=== PATIENT | male | born 1960 | race Two or more races ===

== ENCOUNTER 2024-07-04 08:59 | Emergency (ER) | payer MEDICAID, SELFPAY ==
[2024-07-04] VITALS (8 sets, daily range): BP systolic 150–205; BP diastolic 81–101; PULSE 78–86; RESP 16–20; TEMP 36.4–36.6; O2SAT 96–100; BMI 28.3
--- NOTE | 2024-07-04 09:37 | PC.NURSE ---
PATIENT BROUGHT IN BY EMS SECONDARY TO WITNESSED SEIZURE ACTIVITY. PATIENT ON GURNEY, IV ESTABLISHED. SEIZURE PRECAUTIONS IN PLACE.
--- NOTE | 2024-07-04 10:03 | XR_ITS ---
Examination: CT brain head without contrast. 2-D sagittal coronal reconstructions Date and time of exam:July 04, 2024 1037 hrs. Indications: Seizure this morning CTDI: vol (mGy):53.2 DLP: (mGycm):1130 Technique: Multiple CT axial sections of the brain have been obtained, 5 mm slice thickness. Contrast has not been administered. 2-D sagittal, coronal reconstructions have been obtained Low dose protocols were performed. One or more of the following dose reduction techniques were used; automated exposure control, adjustment of the mA and/or KV according to patient size, use of iterative reconstruction technique. Findings: Acute left basal ganglia hemorrhage, 5 x 4.7 x 2.8 cm with surrounding edema Significant mass effect upon the left lateral ventricle, shift of the frontal horns to the right at least 5 mm No intraventricular hemorrhage No extra-axial hemorrhage Cranial vault appears intact Impression: 5.0 x 4.7 x 2.8 cm left basal ganglia hemorrhage with surrounding edema Significant mass effect upon the left lateral ventricle, shift of the frontal horns to the right at least 5 mm
[2024-07-04 10:22] LABS: Basophils # (Auto) 0.1 Thou/mm3 (0.0-0.2); Basophils % (Auto) 1 % (0-2.5); Eosinophils # (Auto) 0.3 Thou/mm3 (0.0-0.5); Eosinophils % (Auto) 3 % (0-10); Hematocrit 31.7 % (41.0-53.0); Hemoglobin 10.7 g/dL (13.5-16.0); Immature Granulocytes % (Auto) 1 % (0-0); Immature Granulocytes Auto 0.11 Thou/mm3 (0.00-0.00); Lymphocytes # (Auto) 1.8 Thou/mm3 (1.0-4.8); Lymphocytes % (Auto) 18 % (10-50); Mean Corpuscular HGB Conc 33.8 g/dl (31.0-37.0); Mean Corpuscular Hemoglobin 30.2 pg (25.0-35.0); Mean Corpuscular Volume 90 fL (80-100); Monocytes # (Auto) 0.7 Thou/mm3 (0.0-0.8); Monocytes % (Auto) 7 % (0-12); Neutrophils # (Auto) 7.1 Thou/mm3 (1.8-7.7); Neutrophils % (Auto) 70 % (37-80); Nucleated Red Blood Cell % 0 /100 WBC (0); Platelet Count 187 Thou/mm3 (140-440); RDW Standard Deviation 46.3 fL (35.1-43.9); Red Blood Count 3.54 Miln/mm3 (4.50-5.90); White Blood Count 10.1 Thou/mm3 (3.8-10.6)
--- NOTE | 2024-07-04 11:14 | PD.EDSEIZ ---
ED Seizures RME/HPI General Chief Complaint: Seizure Stated Complaint: SEIZURES Time Seen by Provider: 07/04/24 09:39 Arrival date/time: 07/04/24 08:59 Limitations: no limitations RME / HPI RME / HPI Narrative: 63 year old male with history of TIA, seizures, hypertension, diabetes, hyperlipidemia, anemia in CKD, ESRD on HD, BPH, GERD presents to the ED BIBA from [facility] for seizure occurring this morning. Per medics, [place] staff reported patient had got up from bed this morning and while standing had a seizure and fell, striking his head on the floor. NH staff additionally reported after fall patient has remained altered and evidently at baseline walks and talks. No further history obtainable by patient in the ED due to mental status. Per medication list, the patient is on Aspirin 81mg daily. No other blood thinner listed. Related Data Allergies Allergy/AdvReac Type Severity Reaction Status Date / Time No Known Allergies Allergy Verified 07/04/24 11:56 Review of Systems Review of Systems ROS Unobtainable: unobtainable due to mental status Past Medical History Past Medical History NEUROLOGIC: Positive Transient Ischemic Attacks (TIA) and Seizures CARDIAC: Positive Cardiac Disorders, Hypercholesterolemia and Hypertension; Negative Congestive Heart Failure RESPIRATORY: Negative Chronic Obstructive Pulmonary Disease (COPD) GENITOURINARY: Negative Renal Disease ENDOCRINE: Negative Diabetes Mellitus Type 1 or Diabetes Mellitus Type 2 Social History SMOKING STATUS: Unknown if ever smoked ED Exam General Limitations: Present no limitations General appearance: Present other (GCS of 8, opens eyes, blowing out both lips, no facial droop, tracking when I use the light pen otherwise not following commands, withdrawals to deep painful stimulation of nailed of BLE and LUE) Head Head exam: Present atraumatic (No bony tenderness, no contusion, no step off) and normocephalic Eye Eye exam: Present normal appearance and PERRL; Absent nystagmus ENT ENT exam: Present normal exam, normal oropharynx and mucous membranes moist Neck Neck exam: Present normal inspection, trachea midline and other (C-collar initially not in place on arrival. While in the ED ) Chest Chest inspection: Present normal inspection, symmetric chest wall rise and other (No crepitus ) Respiratory Respiratory exam: Present normal lung sounds bilaterally; Absent respiratory distress, wheezes, accessory muscle use or prolonged expiratory phase Cardiovascular Cardiovascular exam: Present regular rate, normal rhythm and normal heart sounds Abdominal Exam Abdominal exam: Present soft, normal bowel sounds and other (Large ); Absent pulsatile mass Extremities Exam Extremities exam: Present normal inspection and full ROM; Absent pedal edema Back Exam Back exam: Present normal inspection and other (No ecchymosis, no step off ) Neurological Exam Neurological exam: Present other (GCS of 8, opens eyes, blowing out both lips, no facial droop, tracking when I use the light pen otherwise not following commands, withdrawals to deep painful stimulation of nailed of BLE and LUE) Skin Skin exam: Present warm, dry, intact and normal color; Absent rash Course Quality Measures none Orders Category Date Time Status EKG (ED ONLY) *Do not use* NOW Care 07/04/24 12:28 Completed Intubation NOW Care 07/04/24 11:50 Completed Miscellaneous Nursing Order X1 Care 07/04/24 12:28 Completed Referral - Radial Drill Operator For Plastic Stat Cons 07/04/24 11:[address] head/brain wo con Stat Exams 07/04/24 10:03 Completed EKG (ED Only) Stat Exams 07/04/24 12:28 Draft XR chest 1V post procedure Stat Exams 07/04/24 11:55 Completed CBC Stat Lab 07/04/24 09:44 Completed CMP [Comprehensive Metabolic Panel] Stat Lab 07/04/24 09:44 Completed Dexamethasone Inj [Decadron Inj] Med 07/04/24 12:01 Discontinued 10 mg IVP X1 ONE Etomidate Inj [Amidate Inj] Med 07/04/24 11:38 Discontinued 20 mg .ROUTE .STK-MED ONE Etomidate Inj [Amidate Inj] Med 07/04/24 11:57 Discontinued 20 mg IVP X1 ONE Midazolam/Ns 100 mg Ivpb [Versed Pf Inj in Ns Premix] Med 07/04/24 11:54 Discontinued 100 mg in 100 ml IV 1 mg/hr Nicardipine/Ns 20Mg Ivpb [Cardene Ivpb] Med 07/04/24 12:04 Discontinued 20 mg in 200 ml IV 5 mg/hr Rocuronium Inj [Zemuron Inj] Med 07/04/24 11:44 Discontinued 100 mg .ROUTE .STK-MED ONE Rocuronium Inj [Zemuron Inj] Med 07/04/24 11:57 Discontinued 70 mg IVP X1 ONE Sterile Water 10 ml Med 07/04/24 11:44 Discontinued .ROUTE .STK-MED Succinylcholine Inj [Anectine Inj] Med 07/04/24 11:38 Discontinued 200 mg .ROUTE .STK-MED ONE fentaNYL 2,500 MCG/250 ML BAG [Sublimaze Inj 2,500 MCG/ Med 07/04/24 11:55 Discontinued 250 ML BAG] 2,500 mcg in 250 ml IV 25 mcg/hr fentaNYL INJ [Sublimaze Inj] Med 07/04/24 12:00 Discontinued 150 mcg IVP X1 ONE levETIRAcetam INJ [Keppra Inj] Med 07/04/24 11:37 Discontinued 1,000 mg IVP X1 ONE Mechanical [Volume Ventilator] Stat RT 07/04/24 Active Vital Signs Vital signs: Vital Signs Temperature 97.8 F 07/04/24 09:17 Pulse Rate 82 07/04/24 09:17 Respiratory Rate 19 07/04/24 09:17 Blood Pressure 150/82 H 07/04/24 09:17 Pulse Oximetry (%) 98 07/04/24 09:17 Oxygen Delivery Method Nasal Cannula 07/04/24 09:17 Oxygen Flow Rate 2 07/04/24 09:17 Pulse ox is 98% on 2L nasal cannula which is adequate. Procedures -ED Intubation Time out performed: Yes sedative: Etomidate Mg Given: 20 paralytic: Rocuronium Mg Given: 70 Laryngoscope: fiber optic video scope Assist Device Used: fiber optic device ET Tube Size: 7.5 ET Tube Uncuffed: No Tube Secured Depth (cm): 24 Tube Secured Location: lips Tube Placement Confirmation: visualized tube passing through cords, equal breath sounds bilaterally, no breath sounds over epigastrium and confirmation by capnometry Patient Tolerated Procedure: well and no complications Intubation Complications: none Seizure MDM Narrative MDM Narrative:: IMabel am scribing for and in the presence of Dr. Mariee. 1115: I did not receive a call regarding positive head CT results. Transfer nurse Brenda aware of plan to transfer. Patient data External records reviewed:: [facility] previous records (No previous records/visits for review), EMS form and Intermediate records (I reviewed medical hx and medication list from [facility] ) Clinical information provided by:: EMS Social determinants that could affect healthcare access:: housing ([place] resident ) Patient has the following chronic illnesses:: TIA, seizures, hypertension, diabetes, hyperlipidemia, anemia in CKD, ESRD on HD, BPH, GERD, How is presenting disease/condition affected by chronic disease/condition?: exacerbated by Evaluation data The following diagnostics were reviewed and interpreted by me:: lab results, radiology exam(s) and EKG tracing(s) (12:32- Sinus rhythm, rate 81, LAD, nonspecific ST changes in II and III. ) Lab and/or radiology exams considered but not ordered:: None Interpretation Summary: Ordering Physician: Lorrie Mariee MD Date of Service: 07/04/24 Procedure(s): CT head/brain wo con Accession Number(s): [id number] cc: Belgica Chand MD; Edison Carrillo MD; Lorrie Mariee MD~ Examination: CT brain head without contrast. 2-D sagittal coronal reconstructions Date and time of exam:July 04, 2024 1037 hrs. Indications: Seizure this morning CTDI: vol (mGy):53.2 DLP: (mGycm):1130 Technique: Multiple CT axial sections of the brain have been obtained, 5 mm slice thickness. Contrast has not been administered. 2-D sagittal, coronal reconstructions have been obtained Low dose protocols were performed. One or more of the following dose reduction techniques were used; automated exposure control, adjustment of the mA and/or KV according to patient size, use of iterative reconstruction technique. Findings: Acute left basal ganglia hemorrhage, 5 x 4.7 x 2.8 cm with surrounding edema Significant mass effect upon the left lateral ventricle, shift of the frontal horns to the right at least 5 mm No intraventricular hemorrhage No extra-axial hemorrhage Cranial vault appears intact Impression: 5.0 x 4.7 x 2.8 cm left basal ganglia hemorrhage with surrounding edema Significant mass effect upon the left lateral ventricle, shift of the frontal horns to the right at least 5 mm Dictated By: Edison Carrillo MD Signed By: <Electronically signed by Edison Carrillo MD in OV> 07/04/24 1108 Ordering Physician: Lorrie Mariee MD Date of Service: 07/04/24 Procedure(s): XR chest 1V post procedure Accession Number(s): [id number] cc: Belgica Chand MD; Edison Carrillo MD; Lorrie Mariee MD~ Examination: AP chest single view Technique: Portable supine AP chest single view Exam date and time: July 04, 2024 12 noon Indications: Seizure this morning, large acute hemorrhage left basal ganglia on CT examination today, hypoxic respiratory failure postintubation Findings: Mild prominence left ventricle Prominent vascular congestion including central vascular engorgement Early septal edema at the lung bases No lobar pneumonia Endotracheal tube tip 4.4 cm above sonya Orogastric tube tip in the stomach satisfactory position Impression: Mild heart failure Dictated By: Edison Carrillo MD Signed By: <Electronically signed by Edison Carrillo MD in OV> 07/04/24 1215 Medications / Prescriptions Medications or Prescriptions considered but not ordered:: None Medication administrations:: Medication Administration History Discontinued Medications Dexamethasone Sodium Phosphate (Dexamethasone Sod Phos Inj 4 Mg/Ml Vial) 10 mg IVP X1 ONE; Protocol Stop: 07/04/24 12:02 Last Admin: 07/04/24 12:21 Dose: 10 mg Documented By: KAYCE Etomidate (Etomidate Inj 2 Mg/Ml Vial 10 Ml) Confirm Administered Dose 20 mg .ROUTE .STK-MED ONE Stop: 07/04/24 11:39 Last Admin: 07/04/24 12:00 Dose: Not Given Documented By: KAYCE Non-Admin Reason: Duplicate Medication on eMAR Etomidate (Etomidate Inj 2 Mg/Ml Vial 10 Ml) 20 mg IVP X1 ONE Stop: 07/04/24 11:58 Last Admin: 07/04/24 11:51 Dose: 20 mg Documented By: KAYCE Fentanyl Citrate (Fentanyl Cit Inj 50 Mcg/Ml Amp 2ml) 150 mcg IVP X1 ONE Stop: 07/04/24 12:01 Last Admin: 07/04/24 12:12 Dose: Not Given Documented By: KAYCE Non-Admin Reason: Cancelled by Provider Sterile Water (Sterile Water) Confirm Administered Dose 10 mls @ ud .ROUTE .STK-MED ONE Stop: 07/04/24 11:45 Last Admin: 07/04/24 12:01 Dose: Not Given Documented By: KAYCE Non-Admin Reason: Cancelled by Provider Fentanyl Citrate (Sublimaze Inj 2,500 Mcg/250 Ml Bag) 2,500 mcg in 250 mls @ 2.5 mls/hr IV .Q24H PRN; Protocol PRN Reason: PER PROTOCOL Stop: 07/09/24 11:54 Last Admin: 07/04/24 12:09 Dose: 25 mcg/hr, 2.5 mls/hr Documented By: KAYCE Co-signed By: JOSÉ ANTONIO Midazolam HCl (Versed Pf Inj In Ns Premix) 100 mg in 100 mls @ 1 mls/hr IV .Q24H PRN; Protocol PRN Reason: PER PROTOCOL Stop: 07/09/24 11:53 Last Admin: 07/04/24 12:07 Dose: 1 mg/hr, 1 mls/hr Documented By: KAYCE Co-signed By: JOSÉ ANTONIO Nicardipine/Sodium Chloride (Cardene Ivpb) 20 mg in 200 mls @ 50 mls/hr IV .Q4H PRN; Protocol PRN Reason: PER PROTOCOL Stop: 08/03/24 12:03 Last Admin: 07/04/24 12:28 Dose: 5 mg/hr, 50 mls/hr Documented By: KAYCE Levetiracetam (Levetiracetam Inj 100 Mg/Ml Vial 5ml) 1,000 mg IVP X1 ONE Stop: 07/04/24 11:38 Last Admin: 07/04/24 11:51 Dose: 1,000 mg Documented By: KAYCE Rocuronium [place] (Rocuronium Inj 10 Mg/Ml Vial 10 Ml) Confirm Administered Dose 100 mg .ROUTE .STK-MED ONE Stop: 07/04/24 11:45 Last Admin: 07/04/24 12:01 Dose: Not Given Documented By: KAYCE Non-Admin Reason: Duplicate Medication on eMAR Rocuronium [place] (Rocuronium Inj 10 Mg/Ml Vial 10 Ml) 70 mg IVP X1 ONE Stop: 07/04/24 11:58 Last Admin: 07/04/24 11:52 Dose: 70 mg Documented By: KAYCE Co-signed By: Succinylcholine Chloride (Succinylcholine Inj 20 Mg/Ml Vial 10 Ml) Confirm Administered Dose 200 mg .ROUTE .STK-MED ONE Stop: 07/04/24 11:39 Last Admin: 07/04/24 12:00 Dose: Not Given Documented By: KAYCE Non-Admin Reason: Duplicate Medication on eMAR See above Consultations Consultation(s) initiated? (list below): Yes Consultation #1 (Physician, Specialty, Details): I spoke with transfer nurse at [facility]. Discussed patients PMHx, HPI, ED course, exam findings, labs, and radiology results. Time: 11:40 Consultation #2 (Physician, Specialty, Details): I spoke with transfer nurse at [facility], requesting a Nicardipine drip and keep blood pressure < 160. They accept the patient for transfer. Time: 12:03 Diagnosis Seizure Differential Diagnosis: focal seizure, generalized seizure, epileptic seizure, status epilepticus and other (ICH, hypertensive bleed, tumor, tumor with surrounding bleeding, subdural hematoma, subarachnoid hematoma, acute on chronic renal disease with worsening electrolytes) Most likely diagnosis given after review of the tests above:: Intracranial bleed Hypertension ESRD Altered mental status Admission Indicated Admission indicated?: not indicated Explain why admission is indicated or not indicated:: Patient will be transferred to a facility with neurosurgery services. Admission Request Was there a request for admission?: No Disposition Plan Disposition Plan: Transfer Critical Care Time Critical Care Time Critical Care Time: Yes Total Critical Care Time (min.): 35 Attestation: The high probability of sudden, clinically significant deterioration in the patient's condition required the highest level of my preparedness to intervene urgently. The services I provided to this patient were to treat and/or prevent clinically significant deterioration. Services included the following: chart data review, reviewing nursing notes and/or old charts, documentation time, freight traffic consultant collaboration regarding findings and treatment options, medication orders and management, direct patient care, vital sign assessments and ordering, interpreting and reviewing diagnostic studies and lab tests. Aggregate critical care time includes only time during which I was engaged in work directly related to the patient's care, as described above, whether at bedside or elsewhere in the Emergency Department. It did not include time spent performing other reported procedures or the services of residents, students, nurses or physician assistants. Discharge Plan Plan Patient Disposition: [facility] Service Needed for Transfer: Neurosurgery Prescriptions/Referrals Referrals: Belgica Chand MD [Primary Care Provider] - In 1 week Problem List Clinical Impression: Intracranial hemorrhage, ESRD (end stage renal disease), Altered mental status Patient/Caregiver Discharge Instructions Print Language: Togolese Stand Alone Forms: [facility] Award Info., Patient Portal Info Letter
--- NOTE | 2024-07-04 11:24 | PC.CM ---
Addendum entered by Brenda Cheng RN 07/04/24 13:43: Dr. Suleiman Pond signed for patient due to the fact patient on vent and unable to sign. I called patients sister that lives in [place] and I let her know we are transferring patient to [facility]. Completed packet given to transport team. I gave 1 packet for [facility] and once for the flight team. Addendum entered by Brenda Cheng RN 07/04/24 12:16: Patient has been accepted by [facility] with Dr. White. Number to call and give report is [phone]. Patient is intubated at this time on drips. I let [facility] know that patient has been accepted by [facility]. I called and spoke to [facility] and they are on the way. Original Note: I recieved a referral to transfer patient for left basal ganglia hemorrhage with surrounding edema. I contacted [facility] and [facility] and faxed over information.
[2024-07-04 11:35] LABS: Alanine Aminotransferase 15 U/L (10-49); Albumin, Serum 4.4 gm/dL (3.4-4.8); Albumin/Globulin Ratio 1.4 (1.2-2.2); Alkaline Phosphatase 114 U/L (46-116); Anion Gap 11 (7-16); Aspartate Amino Transferase 14 U/L (0-34); BUN/Creatinine Ratio 8 Ratio (12-20); Bilirubin,Total 0.2 mg/dL (0.3-1.2); Blood Urea Nitrogen 56 mg/dL (9-23); Calcium 9.1 mg/dL (8.3-10.6); Calcium (Corrected) 9.1 mg/dL (8.5-10.1); Carbon Dioxide 24.4 mMol/L (20.0-31.0); Chloride 100 mMol/L (98-107); Creatinine (Component) 7.2 mg/dL (0.6-1.3); Estimated Creatinine Clearance 9.9 mL/min (>60); Globulin 3.1 gm/dL (2.3-3.5); Glucose 159 mg/dL (74-106); Osmolality,Calculated 288 (275-295); Sodium 135 mMol/L (136-145); Total Protein 7.5 gm/dL (5.7-8.2); eGFR 8 See Note
[2024-07-04] MEDS: ETOMIDATE INJ 2 MG/ML VIAL 10 ML 20 MG IVP (11:51)
[2024-07-04] MEDS: levETIRAcetam INJ 100 MG/ML VIAL 5ML 1000 MG IVP (11:51)
[2024-07-04] MEDS: ROCURONIUM INJ 10 MG/ML VIAL 10 ML 70 MG IVP (11:52)
--- NOTE | 2024-07-04 11:55 | XR_ITS ---
Examination: AP chest single view Technique: Portable supine AP chest single view Exam date and time: July 04, 2024 12 noon Indications: Seizure this morning, large acute hemorrhage left basal ganglia on CT examination today, hypoxic respiratory failure postintubation Findings: Mild prominence left ventricle Prominent vascular congestion including central vascular engorgement Early septal edema at the lung bases No lobar pneumonia Endotracheal tube tip 4.4 cm above sonya Orogastric tube tip in the stomach satisfactory position Impression: Mild heart failure
[2024-07-04] MEDS: MIDAZOLAM/NS 100 MG IVPB 100 MG/100 ML BAG IV (12:07)
[2024-07-04] MEDS: fentaNYL 2,500 MCG/250 ML BAG 2,500 MCG/250 ML BAG IV (12:09)
[2024-07-04] MEDS: DEXAMETHASONE SOD PHOS INJ 4 MG/ML VIAL 10 MG IVP (12:21)
[2024-07-04] MEDS: NICARDIPINE/NS 20MG IVPB 20 MG/200 ML BAG 50 MG IV (12:28)
--- NOTE | 2024-07-04 12:28 | EKG_ITS ---
[facility] Test Date: 2024-07-04 Pat Name: DONTE ANDRES Department: Room: - Gender: Male Bulker: : 1960 Requested By: Lorrie Head Order Number: [id number] Reading MD: Lorrie Head Measurements Intervals [place] Rate: 81 P: 29 [place]: 181 QRS: -31 QRSD: 92 T: 17 QT: 378 QTc: 441 Interpretive Statements SINUS RHYTHM MARKED LEFT AXIS DEVIATION [QRS AXIS < -30] No previous ECG available for comparison /[id number]/S0/[id number].pdf
--- NOTE | 2024-07-04 13:01 | PC.NURSE ---
FLIGHT CREW WITH PATIENT AT THIS TIME.
--- NOTE | 2024-07-04 13:43 | PD.EDADDENDU ---
ED Procedures Intubation Time out performed: Yes sedative: Etomidate Mg Given: 20 paralytic: Rocuronium Mg Given: 70 Laryngoscope: fiber optic video scope Assist Device Used: fiber optic device ET Tube Size: 7.5 ET Tube Uncuffed: No Tube Secured Depth (cm): 24 Tube Secured Location: other (gum) Tube Placement Confirmation: visualized tube passing through cords, equal breath sounds bilaterally, no breath sounds over epigastrium and confirmation by capnometry Patient Tolerated Procedure: well Intubation Complications: none Additional Comments: Successful intubation with visualization of ET tube passing through vocal cords with Dr. Mariee at bedside.
--- NOTE | 2024-07-04 13:44 | PC.CC ---
1343-[employer] spoke with Marilyn, staff with [facility]. [employer] provided update that pt was transferred out at 1306.
== END 2024-07-04 13:00 | disposition short-term general hospital (02) ==
PROVIDERS: Emergency Provider Emergency Medicine; PCP Hospitalist
DX: S06.350A Traumatic hemorrhage of left cerebrum without loss of consciousness, initial encounter (principal); I13.2 Hypertensive heart and chronic kidney disease with heart failure and with stage 5 chronic kidney disease, or end stage renal disease; E11.22 Type 2 diabetes mellitus with diabetic chronic kidney disease; N18.6 End stage renal disease; I50.9 Heart failure, unspecified; R22.0 Localized swelling, mass and lump, head; Z86.73 Personal history of transient ischemic attack (TIA), and cerebral infarction without residual deficits; E78.00 Pure hypercholesterolemia, unspecified; W18.39XA Other fall on same level, initial encounter; Z99.2 Dependence on renal dialysis; Z75.1 Person awaiting admission to adequate facility elsewhere
CPT/HCPCS: 31500; 36415; 70450; 80053; 85025; 93005; 94002; 96374; 96375; 99291; J1100; J1953; J2251; J2404; J3010; J3490